=== PATIENT | female | born 1960 | race Caucasian/White ===

== ENCOUNTER 2018-09-06 23:31 | Inpatient (IN) | payer MEDICAID, OTHER ==
[2018-09-06 23:31] VITALS: BMI 21.0
--- NOTE | 2018-09-06 23:49 | ED PDOC ---
Psych Transfer Clearance - Clearance Statement Clearance Statement: Vital signs, lab results and transfer papers reviewed on previous shift by Dr Griffith. Patient clinically stable for psychiatric admission.
[2018-09-06 23:51] VITALS: O2SAT 96
[2018-09-07] MEDS ORDERED: Bismuth Subsalicylate 262 mg/15 ml Sus (240 ml) PO PRN (00:24)
[2018-09-07] MEDS ORDERED: Magnesium Hydroxide Susp 30 ml UD PO PRN (00:24)
[2018-09-07] MEDS ORDERED: Alum-Mag Hydrox-Simethicone Susp (30 mL) PO PRN (00:24)
--- NOTE | 2018-09-07 01:34 | PCM.BM ---
<Agustin Pierson - Last Filed: 09/07/18 01:32> Treatment Plan Problems - Problems identified on initial assessmt Self Harm Date Initiated: 09/07/18 Time Initiated: 01:32 Assessment reference: NA Status: Active Self Care Deficit Date Initiated: 09/07/18 Time Initiated: 01:32 Assessment reference: NA Status: Active Feelings of Worthlessness Date Initiated: 09/07/18 Time Initiated: 01:32 Assessment reference: AT, NA Status: Active Hopelessness/Helplessness Date Initiated: 09/07/18 Time Initiated: 01:33 Treatment assets and liabiliti Patient Assests: self-reliant, negotiates basic needs, cognitively intact Patient Liabilities: financial problems, poor support system, relationship conflicts, substance abuse, medical problems - Milieu Protocol Maintain good personal hygiene: every shift Encourage regular showers, every josue ft Remind patient to perform daily oral care, every shift Assist patient to perform ADL's Maintain personal safety: daily Educate patient to report safety concerns to staff, daily Monitor environment for contraband/sharps Medication safety: Monitor for expected outcome, potential side effects: daily, Assess barriers to learning: daily, Assess readiness for medication education: daily <Kemi Holguin - Last Filed: 09/07/18 11:25> - Diagnosis (1) Major depressive disorder Status: Acute Interventions: Medication management, Individual and group therapy, Psychoeducation 09/07/18 11:26 (2) Benzodiazepine abuse Status: Acute Interventions: Medication management, Individual and group therapy, Psychoeducation 09/07/18 11:26 <Davina Milner - Last Filed: 09/08/18 10:46> Family Contact Family involvement: Family/SO is involved Family contact: Patient agrees to contact, Family has been contacted by patient, Telephone contact initiated by staff Family contact name: Shyla - daughter Family contacted how many times per week?: 2 Family contact comment: [phone] - Goals for Treatment Patient goals for treatment: Pt will improe overall mood. Pt will be free of suicide ideation and thoughts. Pt will develop strategies to thought distraction when ruminating on the past. Pt will be less anxious and tearful. Pt will attend clinical and activit groups. Pt will comply with prescribed medications. Pt will improve coping skills. Pt will learn to express feelings verbally witout acting out. Pt will learn 2 ways to manage frustration in a positive manner. Discharge/Continuing Care - Education Needs Education Needs: Patient Medication, Patient Diagnosis/Disease Process, Patient Coping Skills, Patient Community resources, Patient Activities of Daily Living, Patient Health Practices/Safety, Patient Personal Hygiene/Grooming, Patient Aftercare Safety Plan - Discharge Discharge Criteria: Tolerates medication w/o severe side effects, Free of Suicidal thoughts, Free of agitation, Normal sleep pattern, Ability to care for self, Reduction of target symptoms Discharge to:: Home, With Family - Additional Comments 09/08/18 10:33 Pt seen and discussed in team meeting. Reason for hospitalization reviewed and discussed. Pt was a transfer from [facility] secondary to suicide attempt. Pt reported suffering from depression and "I took all of my blood pressure pills because i don't want to live anymore." Pt presents very tearful and with poor insight into her actions. Pt reported she took 20 high blood pressure pills and 10 Xanax. Pt reported receiving Xanax from her PMD, Dr. Ma. Pt reported that all of her financial issues and stressors began after she fractured her foot in May 2018. Pt continues to express suicide ideation stating "It's ok people ." Pt further stated "I have high blood pressure, I just wanted to take more because i wanted my heart to stop." Pt reported hx of previous attempts, last approximately 3-4 years ago. Pt reported hx of prior psychiatric hospitalizations. Pt reported she was previously linked to Dr. Navya Harrison at [facility]; however, with her most recent insurance changes pt was and is unable to pay for her $60 copays and discontinued services. Pt signed a 48 hour notice of intent to leave on 09/06 at 0050am and is requesting to be discharged. Tx plan reviewed and discussed with pt. Pt informed that she cannot be discharged at this time due to safety concerns and informed that referral to [facility] will be submitted for a Screening Evaluation. Pt continues to express that she needs to be discharged because she fears that she will lose her job and only source of income. Pt's social and medical issues reviewed and discussed. Pt's medications reviewed. Tx plan reviewed. Pt will be referred to [facility] for independent evaluation. SW will continue to follow case. - Treatment Team Participation Discussed with Family/SO: No Was Patient/Family/SO present at Treatment Team Meeting: Yes
[2018-09-07] MEDS ORDERED: TEMAZEPAM 15 MG PO PRN (04:00)
[2018-09-07] MEDS ORDERED: Albuterol 0.083% Inhal Sol (2.5 mg/3 mL) UD INH PRN (04:05)
[2018-09-07 07:00] LABS: HEMOGLOBIN 13.6 g/dL (12.0-16.0); MEAN CELL VOLUME 82.5 fl (81.0-99.0); MEAN CORPUSCULAR HGB CONC 32.8 g/dL (33.0-37.0); RBC 5.03 Mil/uL (3.80-5.20); RED CELL DISTRIBUTION WIDTH 15.7 % (11.5-14.5); WHITE BLOOD COUNT 9.7 K/uL (4.8-10.8)
[2018-09-07 07:29] LABS: IRON 40 ug/dL (37-170)
[2018-09-07 07:30] LABS: ALB/GLOB RATIO 1.2 (1.0-2.1); ALBUMIN 5.1 g/dL (3.5-5.0); ALT/SGPT 33 U/L (9-52); AST/SGOT 37 U/L (14-36); BLOOD UREA NITROGEN 17 mg/dl (7-17); CALCIUM 9.9 mg/dL (8.4-10.2); GFR NON-AFRICAN AMERICAN > 60; HDL CHOLESTEROL 52 MG/DL (30-70)
[2018-09-07 07:39] LABS: % IRON SATURATION 8 % (20-55); TOTAL IRON BINDING CAPACITY 484 ug/dL (250-450)
[2018-09-07 07:41] LABS: LDL CHOLESTEROL 129 mg/dL (0-129)
[2018-09-07 08:02] LABS: FERRITIN 23.3 ng/Ml (11.1-264.0)
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
[2018-09-07] MEDS ORDERED: Potassium Chloride 20 mEq ER Tab PO ONE (14:00)
[2018-09-07] MEDS ORDERED: Albuterol HFA 90 mcg/actuation (8 g) INH PRN (14:11)
[2018-09-07 18:44] LABS: FOLATE > 20.0 ng/mL
[2018-09-08 06:36] VITALS: RESP 18
[2018-09-08 07:15] LABS: ALB/GLOB RATIO 1.3 (1.0-2.1); ALBUMIN 4.9 g/dL (3.5-5.0); ALT/SGPT 28 U/L (9-52); AST/SGOT 43 U/L (14-36); BLOOD UREA NITROGEN 25 mg/dl (7-17); CALCIUM 10.2 mg/dL (8.4-10.2); GFR NON-AFRICAN AMERICAN > 60
--- NOTE | 2018-09-08 08:04 | PCM.PYCHPN ---
Psychiatric Progress Note - Psychiatric Progress Note Patient seen today, length of contact: Pt evaluated, case discussed w/ team, chart reviewed Patient Chief Complaint: "I took pills." Problems Identified/Issues Discussed: Patient was screened by [facility] and found to meet criteria for involuntary psychiatric commitment; pending bed and transfer. Patient continues to report feeling depressed and anxious w/ suicidal ideation to kill herself. She wishes that she was not alive. She denies active plan/intent. She is agreeable to starting treatment with an antidepressant at this time. Medication Change: Yes (Start Wellbutrin) Medical Record Reviewed: Yes Consults ordered or reviewed: Medicine consult Mental Status Examination - Cognitive Function Orientation: Person, Place, Situation, Time Memory: Intact Attention: WNL Concentration: WNL Association: WNL Fund of Knowledge: [facility] Decription of patient's judgement and insights: Poor I/J - Mood Mood: Depressed, Anxious - Affect Affect: Other (Labile) - Speech Speech: Appropriate - Formal Thought Process Formal Thought Process: No Impairment Psychotic Thoughts and Behaviors: No AH/VH/paranoia/delusions - Suicidal Ideation Suicidal Ideation: Yes - Homicidal Ideation Homicidal Ideation: No Goal/Treatment Plan - Goal/Treatment Plan Need for Continued Stay: Remain at risks for inpatient hospitalization, Severe depression anxiety Progress Toward Problem(s) and Goals/Treatment Plan: Major Depressive Disorder; r/o Personality Disorder -Start Wellbutrin -Ativan to prevent ETOH withdrawal -Medicine consult -Transfer to [facility] when bed is available -Individual and group therapy -Nicotine patch -Disposition planning
[2018-09-08] MEDS: buPROPion SR 150 MG TABLET PO SCH (11:26)
[2018-09-08] MEDS ORDERED: Albuterol HFA 90 mcg/actuation (8 g) INH PRN (16:54)
[2018-09-09] MEDS: buPROPion SR 150 MG TABLET PO SCH (08:19)
--- NOTE | 2018-09-09 09:44 | PCM.PYCHPN ---
Psychiatric Progress Note - Psychiatric Progress Note Patient seen today, length of contact: Pt evaluated, case discussed w/ team, chart reviewed Patient Chief Complaint: "I took pills." Problems Identified/Issues Discussed: Patient pending involuntary bed and transfer. She continues to be depressed, anxious, labile w/ SI. No current suicidal plan or intent. No adverse effects to medications reported. Medication Change: No Medical Record Reviewed: Yes Consults ordered or reviewed: Medicine consult Mental Status Examination - Cognitive Function Orientation: Person, Place, Situation, Time Memory: Intact Attention: WNL Concentration: WNL Association: WN Fund of Knowledge: [facility] Decription of patient's judgement and insights: Poor I/J - Mood Mood: Depressed, Anxious - Affect Affect: Other (Labile) - Speech Speech: Appropriate - Formal Thought Process Formal Thought Process: No Impairment Psychotic Thoughts and Behaviors: No AH/VH/paranoia/delusions - Suicidal Ideation Suicidal Ideation: Yes Plan: No current plan - Homicidal Ideation Homicidal Ideation: No Goal/Treatment Plan - Goal/Treatment Plan Need for Continued Stay: Remain at risks for inpatient hospitalization, Severe depression anxiety Progress Toward Problem(s) and Goals/Treatment Plan: Major Depressive Disorder; r/o Personality Disorder -Continue Wellbutrin -Ativan to prevent ETOH withdrawal -Medicine consult -[facility] [place] [facility] when [place] is [place] -Individual and group therapy -Nicotine patch -Disposition planning
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
[2018-09-09 16:26] VITALS: BP 130/85; PULSE 90; TEMP 99
== END 2018-09-09 17:23 | DRG 881 ==
LOC: H.ER 23:31 → H.STEP 23:46
PROVIDERS: ADMIT Psychiatry & Neurology Psychiatry; ATTEND Psychiatry & Neurology Psychiatry
PROC: GZHZZZZ Group Psychotherapy (ICD-10-PCS; principal; 2018-09-06)
DX: F32.9 Major depressive disorder, single episode, unspecified (principal); E78.5 Hyperlipidemia, unspecified; E87.6 Hypokalemia; F17.210 Nicotine dependence, cigarettes, uncomplicated; G89.29 Other chronic pain; J45.20 Mild intermittent asthma, uncomplicated; M41.9 Scoliosis, unspecified; Z85.51 Personal history of malignant neoplasm of bladder; F13.10 Sedative, hypnotic or anxiolytic abuse, uncomplicated; I10 Essential (primary) hypertension; Z86.73 Personal history of transient ischemic attack (TIA), and cerebral infarction without residual deficits; F41.9 Anxiety disorder, unspecified; Z59.9 Problem related to housing and economic circumstances, unspecified